=== PATIENT | female | born 1965 | race Caucasian/White ===

== ENCOUNTER 2020-07-27 00:24 | Outpatient (CLI) | payer BC, SELFPAY ==
[2020-07-28 03:00] LABS: SARS-CoV-2 RNA PCR Negative
== END 2020-07-27 00:25 | disposition home or self-care (01) ==
LOC: ANHCOVIDDT 00:25
PROVIDERS: PCP Family Medicine; Visit Provider Obstetrics & Gynecology
DX: Z01.812 Encounter for preprocedural laboratory examination (principal); Z20.828 Contact with and (suspected) exposure to other viral communicable diseases
CPT/HCPCS: 87635; C9803; U0003

== ENCOUNTER 2020-07-29 01:53 | Day surgery (SDC) | payer BC, SELFPAY ==
[2020-07-26 09:27] VITALS: BMI 32.3
--- NOTE | 2020-07-27 07:36 | PM.IMHP ---
H&P: HPI History of Present Illness Date/Time: 07/27/20 07:36 Chief complaint: Lichen Sclerosus/ Pain Narrative: Malena Amado is a 55 year old female who was admitted for simple /partial vulvectomy secondary to pain with lichen sclerosus. She has had a long history of severe pain in the perineal area. Plan she was undertaken in lichen sclerosis was found. She is admitted for wider excision and repair Review of Systems Review of Systems: All systems reviewed & are unremarkable except as noted in HPI and below PMFSH Social History Social History Smoking status: Never smoker Spiritual care concerns: No Meds Home Medications and Allergies Home Medications Medication Instructions Recorded Confirmed Type No Home Medications 07/26/20 07/26/20 History Allergies Allergy/AdvReac Type Severity Reaction Status Date / Time morphine Allergy HIVES, Verified 07/26/20 09:28 EYES SWELLING Penicillins Allergy UNKNOWN Verified 07/26/20 09:28 REACTION Exam Const: General: no acute distress Eyes: General: appearance normal, both eyes and all related structures Neck: Neck: supple and no JVD Thyroid: thyroid normal Resp: Effort & Inspection: normal respiratory effort Auscultation: clear to auscultation bilaterally Cardio: Rate: regular rate Rhythm: regular rhythm GI: Inspection: non-distended GI Palp: Yes Soft to palpation, No Tenderness to palpation present (GI) and No Guarding due to palpation present (GI) Auscultation: normal bowel sounds : General: Yes bladder normal to inspection External Female Exam: normal external appearance and externally tender ( The perineal body shows irregular lesion) Speculum Exam - Cervix: normal appearance of the cervix Bimanual exam- vagina & uterus: soft Bimanual Exam- Adnexa, other: normal adnexae Skin: General skin exam: no rashes or lesions noted Extrem: General: normal to inspection and no edema Psych: Mental Status: mental status grossly normal Affect: normal affect Assessment and Plan Additional Plan impression: Lichen sclerosis Plan: Partial simple vulvectomy
--- NOTE | 2020-07-28 13:10 | WPDANESEPPF ---
Anes - Initial Pre Proc Eval Procedure: Operation Date: 07/29/20 13:30 Proposed Procedures p Partial Simple Vulvectomy - Andreas Barton MD Date/Time: 07/28/20 13:10 Surgeon: Andreas Barton MD Pre Op Diagnosis: Lichen Sclerosus/ Pain Patient Data Age: 55 Gender: F Height: 1.68 m Weight: 90.72 kg Allergies Allergy/AdvReac Type Severity Reaction Status Date / Time morphine Allergy HIVES, Verified 07/26/20 09:28 EYES SWELLING Penicillins Allergy UNKNOWN Verified 07/26/20 09:28 REACTION Home Medications Medication Instructions Recorded Confirmed Type hydrocodone-acetaminophen 1 tablet PO Q6H PRN #30 tablet 07/29/20 Rx Patient hx anesthesia problems: none Family hx anesthesia problems: none PMFSH Past Medical History Medical History (Updated 07/28/20 @ 13:12 by Rylan Lynch MD) Arthritis Hypercholesterolemia Obesity Social History Social History Smoking status: Never smoker Spiritual care concerns: No Anes - Eval Final PreProcedure Day of Procedure 07/28/20 13:10 Patient weight: morbidly obese Heart: regular rate and rhythm Lungs: clear to auscultation and normal air movement Airway: Mallampati scale class II Neurological: alert and oriented Last oral intake: >/= 8 hours ASA classification: II Emergent: no Anesthetic plan: proceed Anesthesia type and monitoring: general GIVS, LMA and ETT Informed Consent: The patient's anesthetic plan and its attendant risks and benefits were discussed with the patient/family/POA. Questions were solicited and answers provided to the satisfaction of the patient/family/POA.
--- NOTE | 2020-07-29 06:30 | WPDHPUPDATE1 ---
History and Physical Update Update Date/Time: 07/29/20 06:30 History and Physical has been reviewed, including an updated exam of the patient. There are NO changes in the patient's condition. Risks, benefits, and alternatives have been discussed and questions answered. Patient agrees to proceed with procedure.
[2020-07-29 11:55] VITALS: BP 152/76; PULSE 78; RESP 16; TEMP 35.9; O2SAT 100
[2020-07-29] MEDS: LACTATED RINGERS 1,000 ML 30 ML IV CONT (12:23)
--- NOTE | 2020-07-29 12:58 | PM.PROC ---
Procedure Note - Detailed Date of procedure: 07/29/20 Pre-op diagnosis: Lichen Sclerosus/ Pain Surgeon: Andreas Barton MD postop diagnosis: Lichen sclerosis/ pain Procedure: Simple partial vulvectomy Anesthesia: LMA a and local EBL: 5Cc Complications: None with Findings: Lichen sclerosis at the right lateral edge of the perineum Procedure description: The patient is prepped and draped in the normal sterile fashion and placed in the dorsal lithotomy position. Under excellent LMA anesthesia the perineal body was filled with 2cc of 1% xylocaine anesthesia. The previous biopsy area on to the right of the perineum was noted and probed. No tunneling was noted. A circumferential incision was made around the perineal abnormality. This was then point cauterized to maintain hemostasis. It was probed for any other abnormalities and none were seen. The body was then closed with running 3 0 Vicryl from lateral edge to lateral edge. Blood loss was estimated at5cc. All sponge, needle, instrument counts were correct. There were no complications noted
[2020-07-29 13:01] VITALS: BP 132/66; PULSE 83; RESP 12; O2SAT 97
[2020-07-29] MEDS: LIDO 1%/EPINEPHRINE 1:100,000 20 ML VIAL 3 ML INFILTRATE (13:21)
[2020-07-29 13:35] VITALS: BP 130/67; PULSE 71; RESP 16
[2020-07-29 13:50] VITALS: BP 118/68; PULSE 65; RESP 16
== END 2020-07-29 14:00 | disposition home or self-care (01) ==
PROVIDERS: PCP Family Medicine; Visit Provider Obstetrics & Gynecology
PROC: (CPT 56620; principal; 2020-07-29 13:30)
DX: L90.0 Lichen sclerosus et atrophicus (principal); R10.2 Pelvic and perineal pain; E66.01 Morbid (severe) obesity due to excess calories; Z68.41 Body mass index [BMI] 40.0-44.9, adult
CPT/HCPCS: 56620; 88305; A9270; J1100; J2250; J2704; J2710; J3010; J7120

== ENCOUNTER → 2020-12-26 11:59 | Outpatient (CLI) | payer BC, SELFPAY ==
--- NOTE | ~2020-12-26 | MM_ITS ---
EXAMINATION: MM screening jason BI w josue HISTORY: Screening mammogram TECHNIQUE: Craniocaudal and mediolateral oblique 3-D tomosynthesis images were obtained and synthetic 2-D images were generated. CAD analysis was submitted and interpreted. COMPARISON: No prior mammogram is available for comparison at this institution. BREAST PARENCHYMAL COMPOSITION: The breasts are almost entirely fatty. FINDINGS: There is no evidence of suspicious mass, calcification, or architectural distortion to sugg est malignancy in either breast. There has been no suspicious interval change. IMPRESSION: 1. No mammographic evidence of malignancy. 2. Recommend routine screening mammography in one year. BI-RADS Category 1: Negative Reviewed, dictated and finalized at location A.
== END ==
PROVIDERS: Visit Provider Obstetrics & Gynecology
DX: Z12.31 Encounter for screening mammogram for malignant neoplasm of breast (principal)
CPT/HCPCS: 77063; 77067

== ENCOUNTER → 2022-01-01 12:09 | Outpatient (CLI) | payer BC, SELFPAY ==
--- NOTE | ~2022-01-01 | MM_ITS ---
EXAMINATION: MM screening jason BI w josue HISTORY: Screening mammogram TECHNIQUE: Craniocaudal and mediolateral oblique 3-D tomosynthesis images were obtained and synthetic 2-D images were generated. CAD analysis was submitted and interpreted. COMPARISON: No prior mammogram is available for comparison at this institution. BREAST PARENCHYMAL COMPOSITION: The breasts are almost entirely fatty. FINDINGS: There is no evidence of suspicious mass, calcification, or architectural distortion to sugg est malignancy in either breast. There has been no suspicious interval change. IMPRESSION: 1. No mammographic evidence of malignancy. 2. Recommend routine screening mammography in one year. BI-RADS Category 1: Negative Reviewed, dictated and finalized at location A.
== END ==
PROVIDERS: PCP Family Medicine; Visit Provider Obstetrics & Gynecology
DX: Z12.31 Encounter for screening mammogram for malignant neoplasm of breast (principal)
CPT/HCPCS: 77063; 77067

== ENCOUNTER → 2023-01-07 10:38 | Outpatient (CLI) | payer OTHER, SELFPAY ==
--- NOTE | ~2023-01-07 | MM_ITS ---
EXAMINATION: MM screening jason BI w josue HISTORY: Screening mammogram TECHNIQUE: Craniocaudal and mediolateral oblique 3-D tomosynthesis images were obtained and synthetic 2-D images were generated. CAD analysis was submitted and interpreted. COMPARISON: 01/01/2022, 12/26/2020 BREAST PARENCHYMAL COMPOSITION: The breasts are almost entirely fatty. FINDINGS: No suspicious mass, calcification, or architectural distortion are identified in either danny ast to suggest malignancy. There has been no suspicious interval change. IMPRESSION: 1. No mammographic evidence of malignancy. 2. Recommend routine screening mammography in one year. BI-RADS Category 1: Negative Reviewed, dictated and finalized at location A.
== END ==
PROVIDERS: PCP Obstetrics & Gynecology; Visit Provider Obstetrics & Gynecology
DX: Z12.31 Encounter for screening mammogram for malignant neoplasm of breast (principal)
CPT/HCPCS: 77063; 77067

== ENCOUNTER 2024-01-13 10:19 | Outpatient (CLI) | payer BC, SELFPAY ==
--- NOTE | ~2024-01-13 | MM_ITS ---
EXAMINATION: MM screening jason BI w josue HISTORY: Screening mammogram TECHNIQUE: Craniocaudal and mediolateral oblique 3-D tomosynthesis images were obtained and synthetic 2-D images were generated. CAD analysis was submitted and interpreted. COMPARISON: January 07, 2023, January 01, 2022, December 26, 2020 bilateral screening mammogram examinations BREAST PARENCHYMAL COMPOSITION: The breasts are almost entirely fatty. FINDINGS: There is no evidence of suspicious mass, calcification, or architectural distortion to sugg est malignancy in either breast. There has been no suspicious interval change. IMPRESSION: 1. No mammographic evidence of malignancy. 2. Recommend routine screening mammography in one year. BI-RADS Category 1: Negative Reviewed, dictated and finalized at location A.
== END 2024-01-13 10:20 ==
LOC: MICIMG 10:20
PROVIDERS: PCP Obstetrics & Gynecology; Visit Provider Obstetrics & Gynecology
DX: Z12.31 Encounter for screening mammogram for malignant neoplasm of breast (principal)
CPT/HCPCS: 77063; 77067

== ENCOUNTER 2025-01-13 09:56 | Outpatient (CLI) | payer BC, SELFPAY ==
--- NOTE | ~2025-01-13 | MM_ITS ---
EXAMINATION: MM screening jason BI w josue HISTORY: Screening TECHNIQUE: Craniocaudal and mediolateral oblique 3-D tomosynthesis images were obtained and synthetic 2-D images were generated. CAD analysis was submitted and interpreted. COMPARISON: Comparison to multiple prior studies sequentially, with oldest reviewed study dated 01/2021. BREAST PARENCHYMAL COMPOSITION: Not dense: There are scattered areas of fibroglandular density. FINDINGS: There is no evidence of suspicious mass, calcification, or architectural distortion to sugg est malignancy in either breast. There has been no suspicious interval change. IMPRESSION: 1. No mammographic evidence of malignancy. 2. Recommend routine screening mammography in one year. BI-RADS Category 1: Negative Reviewed, dictated and finalized at location A.
== END 2025-01-13 09:57 | disposition home or self-care (01) ==
LOC: MICIMG 09:57
PROVIDERS: PCP Obstetrics & Gynecology; Visit Provider Obstetrics & Gynecology
DX: Z12.31 Encounter for screening mammogram for malignant neoplasm of breast (principal)
CPT/HCPCS: 77063; 77067